=== PATIENT | female | born 2005 | race Caucasian/White ===

== ENCOUNTER 2024-12-29 06:38 | Emergency (ER) | payer OTHER, SELFPAY ==
[2024-12-29 06:45] VITALS: BP 142/88; PULSE 86; TEMP 36.9; O2SAT 98; BMI 46.1
[2024-12-29 07:18] LABS: Basophils Absolute Auto 0.1 10^3/uL (0.0-0.1); Basophils Percent Auto 0.8 % (0.2-2.0); Eosinophils Absolute Auto 0.1 10^3/uL (0.0-0.7); Hematocrit 42.1 % (36.0-48.0); Immature Granulocytes Abs Auto 0.02 10^3/uL (0.00-0.03); Immature Granulocytes Pct Auto 0.2 % (0.0-0.5); Lymphocytes Absolute Auto 1.9 10^3/uL (1.2-3.8); Mean Corpuscular HGB Conc 33.3 g/dL (29.9-35.2); Mean Corpuscular Hemoglobin 28.7 pg (26.7-34.0); Mean Corpuscular Volume 86.4 fL (81.0-99.0); Mean Platelet Volume 10.5 fL (9.5-13.5); Monocytes Absolute Auto 0.6 10^3/uL (0.3-0.8); Monocytes Percent Auto 6.9 % (1.7-12.0); Neutrophils Absolute Auto 5.8 10^3/uL (1.4-6.5); Neutrophils Percent Auto 69.1 % (43.0-75.0); Platelet Count 364 10^3/uL (150-450); Red Blood Count 4.87 10^6/uL (4.20-5.40); Red Cell Distribution Width 12.5 % (11.0-15.0); White Blood Count 8.4 10^3/uL (4.0-11.0)
[2024-12-29] MEDS: KETOROLAC TROMETHAMINE 30 MG/ML VIAL 15 MG IVP (07:26)
[2024-12-29 07:33] LABS: HCG Qualitative NEGATIVE (NEGATIVE); Internal Control Within Normal Limits
[2024-12-29 07:35] LABS: Alanine Aminotransferase 30 U/L (14-59); Albumin Level 3.7 g/dL (3.4-5.0); Alkaline Phosphatase 99 U/L (46-116); Anion Gap 15.7; Aspartate Amino Transferase 19 U/L (15-37); BUN Creatinine Ratio 17.6; Bilirubin Total 0.2 mg/dL (0.2-1.0); Calcium 9.3 mg/dL (8.5-10.1); Carbon Dioxide 24.6 mmol/L (21.0-32.0); Chloride 103 mmol/L (98-107); Estimated GFR (African America >60 (>=60 mL/min/1.73m^2); Estimated GFR (Non-African Ame >60 (>=60 mL/min/1.73m^2); Globulin 3.8 g/dL; Glucose 114 mg/dL (74-106); Potassium 4.3 mmol/L (3.5-5.1); Sodium 139 mmol/L (136-145); Total Protein 7.5 g/dL (6.4-8.2)
[2024-12-29] MEDS: 0.9 % SODIUM CHLORIDE 1,000 ML 1000 ML IV (07:51)
[2024-12-29 08:55] VITALS: BP 148/75; PULSE 69; TEMP 36.7; O2SAT 100
[2024-12-29 09:12] LABS: Bilirubin Urine NEGATIVE (NEGATIVE); Blood Urine LARGE (NEGATIVE); Clarity Urine SL CLOUDY (CLEAR); Color Urine BROWN (YELLOW); Glucose Urine UA NEGATIVE (NEGATIVE); Ketones Urine NEGATIVE (NEGATIVE); Leukocyte Esterase Urine NEGATIVE (NEGATIVE); Nitrite Urine NEGATIVE (NEGATIVE); Protein Urine 100 mg/dL (NEG/TRACE); Urobilinogen Urine 0.2 EU/dL (0.2-1.0)
[2024-12-29 09:17] LABS: Urine Microscopic Indicated YES
[2024-12-29 09:23] LABS: Bacteria Urine LARGE #/HPF (NONE SEEN); Mucus Urine TRACE (NONE SEEN); RBC Urine >100 #/HPF (0-2); Squamous Epithelial Cell Urine FEW #/LPF (NONE/RARE); WBC Urine 0-2 #/HPF (NONE SEEN)
[2024-12-29 09:24] LABS: Cast Seen? NONE SEEN #/LPF (NONE SEEN); Crystals Seen? None Seen #/HPF (None Seen); Urine Culture Indicated YES-FRMC
--- NOTE | 2024-12-29 09:38 | ED_ITS ---
HPI - Abdominal Pain General Chief Complaint: Abdominal Pain Stated Complaint: abd pain Time Seen by Provider: 12/29/24 06:56 Mode of arrival: walk-in Limitations: no limitations History of Present Illness HPI narrative: The patient is a 19 years old female coming to the ER with right-sided flank pain that started last night, patient mentioned that she have a history of kidney stone few years ago that she passed by herself, the patient denies any nausea vomiting fever chills or any other concerns, she mentioned that the pain started last night with no exacerbating factors of trauma or carrying anything heavy No radiation of the pain to the abdomen but she mentioned that it radiate towards her back Related Data Previous Rx's ?Medication ?Instructions ?Recorded cephalexin 500 mg capsule 500 mg PO Q8H 7 days #21 caps 12/29/24 tamsulosin 0.4 mg capsule (Flomax) 0.4 mg PO DAILY #10 caps 12/29/24 tramadol 50 mg tablet 50 mg PO BID PRN pain #6 tabs 12/29/24 Allergies Allergy/AdvReac Type Severity Reaction Status Date / Time No Known Drug Allergies Allergy Verified 12/29/24 06:51 Review of Systems ROS Status of ROS 10 or more systems reviewed and unremark able except as noted in history and below PFSH PFSH Social History Little interest or pleasure in doing things: not at all Feeling down, depressed, or hopeless: not at all Exam Narrative Exam Narrative: Nurses notes and vital signs reviewed and patient is not hypoxic. General: Well-appearing and in no apparent distress. Skin: Warm, dry, no pallor noted. No rash. Head: Normocephalic, atraumatic. Neck: Supple, non-tender. Cardiovascular: Regular Rate and Rhythm without murmur, gallop or rub. Respiratory: No accessory muscle use or respiratory distress. Lungs are clear to auscultation, no wheezing, rales or rhonchi Chest Wall: no tenderness Back: No midline thoracic or lumbar vertebral tenderness. Right CVA tenderness Musculoskeletal: normal ROM, no calf or popliteal tenderness, no lower extremity edema/swelling GI: Abdomen is soft, non-distended. Normal bowel sounds. No masses appreciated. No tenderness to palpation. No rebound, guarding, or rigidity noted. Constitutional Vital Signs, click to edit/add: Last Vital Signs Temp 98.1 F 12/29/24 08:55 Pulse 69 12/29/24 08:55 Resp 16 12/29/24 08:55 BP 148/75 H 12/29/24 08:55 Pulse Ox 100 12/29/24 08:55 O2 Del Method Room Air 12/29/24 08:55 Course Vital Signs Vital signs: Vital Signs Temperature 98.4 F 12/29/24 06:45 Pulse Rate 86 12/29/24 06:45 Respiratory Rate 16 12/29/24 06:45 Blood Pressure 142/88 H 12/29/24 06:45 Pulse Oximetry 98 12/29/24 06:45 Oxygen Delivery Method Room Air 12/29/24 06:45 Temperature 98.1 F 12/29/24 08:55 Pulse Rate 69 12/29/24 08:55 Respiratory Rate 16 12/29/24 08:55 Blood Pressure 148/75 H 12/29/24 08:55 Pulse Oximetry 100 12/29/24 08:55 Oxygen Delivery Method Room Air 12/29/24 08:55 MDM - Abdominal Pain MDM Narrative Medical decision making narrative: The patient CBC and chemistry showed no acute significant pathology Urinalysis showed some bacteria and blood test is negative The patient CAT scan showed 3 mm kidney stone on the right side that is at the UVJ junction Patient have mild hydronephrosis on the right side The patient pain responded to Toradol in the ER she was discharged with tramadol as a backup pain medication to help her symptoms being controlled The patient was provided with Flomax as well as strainer and instructed about hydrating well and follow-up with urology as outpatient or her primary care in case of improvement The patient is to follow up with primary care physician in next 2-3 days or to return to the emergency department should any of the signs or symptoms worsen or new symptoms develop. The patient agrees with the following Diagnosis and Treatment plan and the patient will be discharged home. Lab Data Labs: Lab Results 12/29/24 12/29/24 Range/Units 07:10 09:00 WBC 8.4 (4.0-11.0) 10^3/uL RBC 4.87 (4.20-5.40) 10^6/uL Hgb 14.0 (12.0-16.0) g/dL Hct 42.1 (36.0-48.0) % MCV 86.4 (81.0-99.0) fL MCH 28.7 (26.7-34.0) pg MCHC 33.3 (29.9-35.2) g/dL RDW 12.5 (11.0-15.0) % Plt Count 364 (150-450) 10^3/uL MPV 10.5 (9.5-13.5) fL Neut % (Auto) 69.1 (43.0-75.0) % Lymph % (Auto) 22.0 (20.5-60.0) % [place] % (Auto) 6.9 (1.7-12.0) % Eos % (Auto) 1.0 (0.9-7.0) % Baso % (Auto) 0.8 (0.2-2.0) % Neut # (Auto) 5.8 (1.4-6.5) 10^3/uL Lymph # (Auto) 1.9 (1.2-3.8) 10^3/uL [place] # (Auto) 0.6 (0.3-0.8) 10^3/uL Eos # (Auto) 0.1 (0.0-0.7) 10^3/uL Baso # (Auto) 0.1 (0.0-0.1) 10^3/uL Abs Immat Gran (auto) 0.02 (0.00-0.03) 10^3/uL Imm/Tot Granulo (auto) 0.2 (0.0-0.5) % Sodium 139 (136-145) mmol/L Potassium 4.3 (3.5-5.1) mmol/L Chloride 103 (98-107) mmol/L Carbon Dioxide 24.6 (21.0-32.0) mmol/L Anion Gap 15.7 BUN 19.0 H (7.0-18.0) mg/dL Creatinine 1.08 H (0.55-1.02) mg/dL Est GFR ( Amer) >60 (>=60 mL/min/1.73m^2) Est GFR (Non-Af Amer) >60 (>=60 mL/min/1.73m^2) BUN/Creatinine Ratio 17.6 Glucose 114 H (74-106) mg/dL Calcium 9.3 (8.5-10.1) mg/dL Total Bilirubin 0.2 (0.2-1.0) mg/dL AST 19 (15-37) U/L ALT 30 (14-59) U/L Alkaline Phosphatase 99 (46-116) U/L Total Protein 7.5 (6.4-8.2) g/dL Albumin 3.7 (3.4-5.0) g/dL Globulin 3.8 g/dL Albumin/Globulin Ratio 1.0 Serum HCG, Qual Negative (NEGATIVE) Urine Color Brown A (YELLOW) Urine Clarity Sl cloudy (CLEAR) Urine pH 6.0 (5.0-9.0) Ur Specific [place] 1.020 (1.005-1.025) Urine Protein 100 A (NEG/TRACE) mg/dL Urine Glucose (UA) Negative (NEGATIVE) mg/dL Urine Ketones Negative (NEGATIVE) mg/dL Urine Occult Blood Large A (NEGATIVE) Urine Nitrite Negative (NEGATIVE) Urine Bilirubin Negative (NEGATIVE) Urine Urobilinogen 0.2 (0.2-1.0) EU/dL Ur Leukocyte Esterase Negative (NEGATIVE) Urine RBC >100 A (0-2) #/HPF Urine WBC 0-2 A (NONE SEEN) #/HPF Ur Squamous Epith Cells Few A (NONE/RARE) #/LPF Urine Crystals None seen (None Seen) #/HPF Urine Bacteria Large A (NONE SEEN) #/HPF Urine Casts None seen (NONE SEEN) #/LPF Urine Mucus Trace A (NONE SEEN) Ur Culture Indicated? Yes-[facility] [place] Discharge Plan Discharge Chief Complaint: Abdominal Pain Clinical Impression: Calculus of kidney, Hydronephrosis Patient Disposition: Home, Self-Care Time of Disposition Decision: 08:49 Condition: Good Prescriptions / Home Meds: New tamsulosin [Flomax] 0.4 mg capsule 0.4 mg PO DAILY Qty: 10 0RF cephalexin 500 mg capsule 500 mg PO Q8H 7 Days Qty: 21 0RF tramadol 50 mg tablet 50 mg PO BID PRN (Reason: pain) Qty: 6 0RF Print Language: Citizen Of [place] Instructions: Kidney Stones (ED), How to Strain Your Urine (ED), Hydronephrosis (ED) Referrals: Aramis Cotton MD [Primary Care Provider] - 1 week Deborah Schmitz MD [Physician] - 1 week
== END 2024-12-29 09:55 | disposition home or self-care (01) ==
PROVIDERS: Emergency Provider Emergency Medicine; PCP Family Medicine
DX: N13.2 Hydronephrosis with renal and ureteral calculous obstruction (principal); Z87.442 Personal history of urinary calculi
CPT/HCPCS: 36415; 74176; 80053; 81001; 84703; 85025; 87086; 96374; 99284; J1885

== ENCOUNTER 2025-06-28 14:07 | Emergency (ER) | payer OTHER, SELFPAY ==
--- OUTSIDE RECORDS SUMMARY | 2025-06-28 14:27 | XMS_ITS | CCD ---
Author Organization [facility] Care Team Providers Care Screw Remover Name Role Phone JAMES DAVIS Unavailable Unavailable JAMES DAVIS Unavailable Unavailable NO FAMILY, PHYSICIAN Primary Care Provider Unava ilDO Jose Eduardo Elkins Emergency Provider MD Bonifacio Eller Admit Provider MD Bonifacio Eller Attending Provider [phone] NON STAFF Attending Provider Unavailable NON STAFF Attending Unavailable NON STAFF Admitting Unavailable Medications Current Medications Medication Drug Class(es) Dates Sig (Normalized) Sig (Original) escitalopram 5 mg oral tablet (1 source) Serotonin Reuptake Inhibitor Start: 11-15-2023 take 1 tablet by mouth once daily in the morning Escitalopram Oxalate 5 mg Tablet Active 5 MG PO Every morning 15 15 November 15, 2023 1:00am [place] (No Known Home Meds) (1 source) Start: 11-12-2023 [place] (No Known Home Meds) Active November 12, 2023 1:00am Problems Problem Classification Problem Date Documented Da te Episodic/Chronic Mood disorders (1 source) Moderate recurrent major depression; Translations: [Major depressive disorder, recurrent, moderate] 11-13-2023 Chronic Suicide and intentional self-inflicted injury (1 source) Suicidal thoughts; Translations: [Suicidal ideations] 11-23-2023 Episodic Results Test Name Value Interpretation Reference Range Facility Urine Cultureon 12-29-2024 Bacteria identified Cx Nom (U) 50,000 colonies/ml mixed bacterial skin contaminants 2 Days PERFORMED BY: [facility] [place] [id number] PATHOLOGIST SENIOR SYSTEMS PROGRAMMER ANGELITO LATHAM M.D. Normal [facility] Comment on above: Performed By: #### C UU #### [facility] [address] [id number] [facility] Alanine aminotransferase [En zymatic activity/volume] in Serum or PlasmaOrdered By: Jose Eduardo Spear on 11-12-2023 ALT [Catalytic activity/Vol] 21 U/L 7-52 [facility] Albumin [Mass/volume] in Ser um or Plasma by Bromocresol green (BCG) dye binding methoOrdered By: Jose Eduardo Spear on 11-12-2023 Albumin BCG dye [Mass/Vol] 4.7 g/dL 3.5-5.7 [facility] Alkaline phosphatase [Enzyma tic activity/volume] in Serum or PlasmaOrdered By: Jose Eduardo Spear on 11-12-2023 ALP [Catalytic activity/Vol] 102 U/L 34-104 [facility] Amphetamine Screen Ql (U)Ord ered By: Jose Eduardo Spear on 11-12-2023 Amphetamines Ql (U) Negative Negative [facility] Aspartate aminotransferase [ Enzymatic activity/volume] in Serum or PlasmaOrdered By: Jose Eduardo Spear on 11-12-2023 AST [Catalytic activity/Vol] 18 U/L 13-39 [facility] Barbiturates [Presence] in U rine by Screen methodOrdered By: Jose Eduardo Spear on 11-12-2023 Barbiturates Screen Ql (U) Negative Negative [facility] Basophils Auto (Bld) [#/Vol] Ordered By: Jose Eduardo Spear on 11-12-2023 Basophils (Bld) [#/Vol] 0.1 10*3/uL 0.0-0.2 [facility] Basophils/100 WBC Auto (Bld) Ordered By: Jose Eduardo Spear on 11-12-2023 Basophils/100 WBC (Bld) 1.5 % . [facility] Benzodiazepines Screen Ql (U )Ordered By: Jose Eduardo Spear on 11-12-2023 Benzodiazepines Ql (U) Negative Negative [facility] Benzoylecgonine [Presence] i n Urine by Screen methodOrdered By: Jose Eduardo Spear on 11-12-2023 Benzoylecgonine Screen Ql (U) Negative Negative [facility] Bilirubin Test strip Ql (U)O rdered By: Jose Eduardo Spear on 11-12-2023 Bilirubin Ql (U) Negative Negative [facility] Bilirubin.total [Mass/volume ] in Serum or PlasmaOrdered By: Jose Eduardo Spear on 11-12-2023 Bilirubin [Mass/Vol] 0.3 mg/dL 0.3-1.0 [facility] Calcium [Mass/volume] in Ser um or PlasmaOrdered By: Jose Eduardo Spear on 11-12-2023 Calcium [Mass/Vol] 9.7 mg/dL 8.6-10.[address] [facility] Cannabinoids [Presence] in U rine by Screen methodOrdered By: JoseE duardo Spear on 11-12-2023 Cannabinoids Screen Ql (U) Negative Negative [facility] Comment on above: These are unconfirme d results and should not be used for legal purposes. Drug Cut-Off Concentration: AMPH 1000 ng/mL LILA 200 ng/mL ANDREIA 200 ng/mL COCM 300 ng/mL OP 300 ng/mL PCP 25 ng/mL THC 20 ng/mL Carbon dioxide, total [Moles /volume] in Serum or PlasmaOrdered By: Jose Eduardo Spear on 11-12-2023 CO2 [Moles/Vol] 25.3 mmol/L 21.0-31.0 [facility] Chloride [Moles/volume] in S julio or PlasmaOrdered By: Jose Eduardo Spear on 11-12-2023 Chloride [Moles/Vol] 106 mmol/L 98-107 [facility] Color Auto (U)Ordered By: Hermilo Spear on 11-12-2023 Color (U) Yellow Yellow [facility] Creatinine [Mass/volume] in Serum or PlasmaOrdered By: Jose Eduardo Spear on 11-12-2023 Creatinine [Mass/Vol] 0.83 mg/dL 0.60-1.20 [facility] Eosinophils Auto (Bld) [#/Vo l]Ordered By: Jose Eduardo Spear on 11-12-2023 Eosinophils (Bld) [#/Vol] 0.2 10*3/uL 0.0-0.45 [facility] Eosinophils/100 WBC Auto (Bl d)Ordered By: Jose Eduardo Spear on 11-12-2023 Eosinophils/100 WBC (Bld) 2.6 % . [facility] Erythrocyte distribution wid th Auto (RBC) [Ratio]Ordered By: Jose Eduardo Spear on 11-12-2023 Erythrocyte distribution width (RBC) [Ratio] 13.8 % 11.9-15.3 [facility] Ethanol [Mass/volume] in Ser um or PlasmaOrdered By: Jose Eduardo Spear on 11-12-2023 Ethanol [Mass/Vol] mg/dL [facility] Ethanol [Mass/Vol] TNP [facility] Comment on above: Test not performed Globulin Calc (S) [Mass/Vol] Ordered By: Jose Eduardo Spear on 11-12-2023 Globulin (S) [Mass/Vol] 3.1 g/dL [facility] Glucose [Mass/volume] in Ser um or PlasmaOrdered By: Jose Eduardo Spear on 11-12-2023 Glucose [Mass/Vol] 104 mg/dL 70-[address] [facility] Comment on above: ADA recommended refe rence rangeRandom Glucose Reference Range is dependent on time and content of last meal. Glucose of more than 200 mg/dL in a nonstressed, ambulatory subject supports the diagnosis of Diabetes Mellitus. HCG ( test) IA.rapi d Ql (U)Ordered By: Jose Eduardo Spear on 11-12-2023 HCG ( test) Ql (U) Negative [facility] Hematocrit Auto (Bld) [Volum e fraction]Ordered By: Jose Eduardo Spear on 11-12-2023 Hematocrit (Bld) [Volume fraction] 42.2 % 34.0-46.4 [facility] Hemoglobin [Mass/volume] in BloodOrdered By: Jose Eduardo Spear on 11-12-2023 Hemoglobin (Bld) [Mass/Vol] 14.1 g/dL 11.8-15.4 [facility] Ketones Auto test strip (U) [Mass/Vol]Ordered By: Jose Eduardo Spear on 11-12-2023 Ketones (U) [Mass/Vol] Trace Negative [facility] Leukocytes [#/volume] correc nisha for nucleated erythrocytes in Blood by Automated counOrdered By: Jose Eduardo Spear on 11-12-2023 WBC corrected for nucl RBC Auto (Bld) [#/Vol] 7.8 10*3/uL 3.8-11.6 [facility] Lymphocytes Auto (Bld) [#/Vo l]Ordered By: Jose Eduardo Spear on 11-12-2023 Lymphocytes (Bld) [#/Vol] 2.5 10*3/uL 1.00-4.8 [facility] Lymphocytes/100 WBC Auto (Bl d)Ordered By: Jose Eduardo Spear on 11-12-2023 Lymphocytes/100 WBC (Bld) 32.0 % . [facility] MCH Auto (RBC) [Entitic mass ]Ordered By: Jose Eduardo Spear on 11-12-2023 MCH (RBC) [Entitic mass] 27.7 pg 24.7-34.3 [facility] MCHC Auto (RBC) [Mass/Vol]Or dered By: Jose Eduardo Spear on 11-12-2023 MCHC (RBC) [Mass/Vol] 33.3 g/dL 32.0-35.0 [facility] MCV Auto (RBC) [Entitic vol] Ordered By: Jose Eduardo Spear on 11-12-2023 MCV (RBC) [Entitic vol] 83.0 fL 80-100 [facility] Monocyte distribution width [Entitic volume] in Blood by AutomatedOrdered By: Jose Eduardo Spear on 11-12-2023 Monocyte distribution width Auto (Bld) [Entitic vol] 18.56 % 0.00-20.00 [facility] Monocytes Auto (Bld) [#/Vol] Ordered By: Jose Eduardo Spear on 11-12-2023 Monocytes (Bld) [#/Vol] 0.4 10*3/uL 0.0-0.8 [facility] Monocytes/100 WBC Auto (Bld) Ordered By: Jose Eduardo Spear on 11-12-2023 Monocytes/100 WBC (Bld) 5.7 % . [facility] Neutrophils Auto (Bld) [#/Vo l]Ordered By: Jose Eduardo Spear on 11-12-2023 Neutrophils (Bld) [#/Vol] 4.6 10*3/uL 1.8-7.7 [facility] Neutrophils/100 WBC Auto (Bl d)Ordered By: Jose Eduardo Spear on 11-12-2023 Neutrophils/100 WBC (Bld) 58.2 % . [facility] Nitrite Test strip Ql (U)Ord ered By: Jose Eduardo Spear on 11-12-2023 Nitrite Ql (U) Negative Negative [facility] No Panel InformationOrdered By: Jose Eduardo Spear on 11-12-2023 Estimated GFR (CKD-EPI) > 60.0 mL/Min [facility] Creatinine Clearance (Chem 132.97 [facility] Nucleated erythrocytes [Pres ence] in Blood by Automated countOrdered By: Jose Eduardo Spear on 11-12-2023 Nucleated RBC Auto Ql (Bld) 0.0 /100{WBC} 0-0.5 [facility] Opiates [Presence] in Urine by Screen methodOrdered By: Jose Eduardo Spear on 11-12-2023 Opiates Screen Ql (U) Negative Negative [facility] Phencyclidine Screen Ql (U)O rdered By: Jose Eduardo Spear on 11-12-2023 Phencyclidine Ql (U) Negative Negative [facility] Platelet mean volume Auto (B ld) [Entitic vol]Ordered By: Jose Eduardo Spear on 11-12-2023 Platelet mean volume (Bld) [Entitic vol] 8.7 fL 6.3-10.7 [facility] Platelets Auto (Bld) [#/Vol] Ordered By: Jose Eduardo Spear on 11-12-2023 Platelets (Bld) [#/Vol] 356 10*3/uL 150-450 [facility] Potassium [Moles/volume] in Serum or PlasmaOrdered By: Jose Eduardo Spear on 11-12-2023 Potassium [Moles/Vol] 3.8 mmol/L 3.5-5.1 [facility] Protein Auto test strip (U) [Mass/Vol]Ordered By: Jose Eduardo Spear on 11-12-2023 Protein (U) [Mass/Vol] Negative Negative [facility] Protein [Mass/volume] in Ser um or PlasmaOrdered By: Jose Eduardo Spera on 11-12-2023 Protein [Mass/Vol] 7.8 g/dL 6.4-8.[address] [facility] RBC Auto (Bld) [#/Vol]Ordere d By: Jose Eduardo Spear on 11-12-2023 RBC (Bld) [#/Vol] 5.08 10*6/uL 3.60-5.00 [facility] Serum or plasma albumin/glob ulin mass ratioOrdered By: Jose Eduardo Spear on 11-12-2023 Albumin/Globulin [Mass ratio] 1.5 {ratio} [facility] Serum or plasma anion gap de terminationOrdered By: Jose Eduardo Spear on 11-12-2023 Anion gap [Moles/Vol] 11.5 mmol/L 6.0-15.0 [facility] Sodium [Moles/volume] in Ser um or PlasmaOrdered By: Jose Eduardo Spear on 11-12-2023 Sodium [Moles/Vol] 139 mmol/L 136-[address] [facility] Specific gravity Auto test s trip (U) [Rel density]Ordered By: Jose Eduardo Spear on 11-12-2023 Specific gravity (U) [Rel density] 1.025 1.001-1.030 [facility] Urea nitrogen [Mass/volume] in Serum or PlasmaOrdered By: Jose Eduardo Spear on 11-12-2023 Urea nitrogen [Mass/Vol] 13 mg/dL 7-25 [facility] Urine clarity by refractomet ry automatedOrdered By: Jose Eduardo Spear on 11-12-2023 Clarity Refractometry automated (U) Clear Clear [facility] Urine glucose measurement by automated test strip (mass/volume)Ordered By: Jose Eduardo Spear on 11-12-2023 Glucose Auto test strip (U) [Mass/Vol] Normal mg/dL Normal [facility] Urine hemoglobin detection b y automated test stripOrdered By: Jose Eduardo Spear on 11-12-2023 Hemoglobin Auto test strip Ql (U) Negative Negative [facility] Urine leukocyte esterase det ection by automated test stripOrdered By: Jose Eduardo Spear on 11-12-2023 Leukocyte esterase Auto test strip Ql (U) Negative Negative [facility] Urobilinogen Auto test strip (U) [Mass/Vol]Ordered By: Jose Eduardo Spear on 11-12-2023 Urobilinogen (U) [Mass/Vol] Normal mg/dL Normal [facility] WBC Auto (Bld) [#/Vol]Ordere d By: Jose Eduardo Beatris on 11-12-2023 WBC (Bld) [#/Vol] 7.8 10*3/uL 3.8-11.[address] [facility] pH Auto test strip (U)Ordere d By: Jose Eduardo Beatris on 11-12-2023 pH (U) 6.0 [pH] 5.0-9.0 [facility] Vital Signs Date Time Vital Sign Value Performing Clinician Faci lity 11-12-2023 21:58-0500 Body height 157.48 cm PHYSICIAN NO [facility] 11-12-2023 21:58-0500 Body temperature 98 [degF] PHYSICIAN NO [facility] 11-12-2023 21:58-0500 Body weight 118 kg PHYSICIAN NO [facility] 11-12-2023 21:58-0500 Diastolic blood pressure 99 mm[Hg] PHYSICIAN NO [facility] 11-12-2023 21:58-0500 Heart rate 87 /min PHYSICIAN NO [facility] 11-12-2023 21:58-0500 Respiratory rate 20 /min PHYSICIAN NO [facility] 11-12-2023 21:58-0500 SaO2% (BldA) [Mass fraction] 100 % PHYSICIAN NO [facility] 11-12-2023 21:58-0500 Systolic blood pressure 175 mm[Hg] PHYSICIAN NO [facility] Encounters Encounter Date Encounter Type Care Provider Facility Start: 12-29-2024 End: 12-29-2024 ambulatory NON STAFF [facility] Work Phone: Start: 12-29-2024 End: 12-29-2024 Departed Referred [facility] Start: 11-15-2023 ambulatory [place] Start: 11-13-2023 Evaluation and management of inpatient PHYSICIAN NO [facility] Work Phone: Start: 12-19-2017 Ambulatory JAMES CRUZY Facility:H 1 Plan of Treatment Date Care Activity Detail Author Start: 12-29-2024 Bacteria identified in Urine by Culture Urine Culture [facility] Start: 12-29-2024 Urine culture [facility] Payers Date Payer Category Payer Self-pay 2023 Medicaid [id number] [id number] 1960 Self-pay [id number] Unknown [id number] Social History Date Type Detail Facility Start: 11-12-2023 End: 11-13-2023 Tobacco smoking status NHIS Never smoked tobacco (finding) [facility] Start: 2005 Sex Assigned At Female [facility] Start: 12-30-2024 Sex Female (finding) [facility] Evaluation note Note Date & Type Note Facility Evaluation note No assessment information availa ble [facility] Work Phone: Summary Purpose Family History No Family History Records Found Relationship Condition Age at Onset Recorded Date/T miah mother Bipolar affective disorder Unknown Accidental overdose of heroin Unknown Advance Directives No Advanced Directives Records Found Advance Directive Response Recorded Date/ Time Advance Directives No November 12, 2023 10:38pm Advance Directive Response Recorded Date/ Time Advance Directives No November 12, 2023 11:38pm Chief Complaint and Reason for Visit Chief Complaint MHP Chief Complaint Admit Date Unknown December 29, 2024 9:2 4am Additional Source Comments INFORMATION SOURCE (unrecogn ized section and content) DATE CREATED AUTHOR 04/06/2018 [facility] DATE CREATED AUTHOR AUTHOR'S ORGANIZ ATION 05/08/2024 [place] DATE CREATED AUTHOR AUTHOR'S ORGANIZ ATION 01/02/2025 [facility] Care Teams (unrecognized sec tion and content) Team Status: Active Member Role Status Dates PHYSICIAN NO FAMILY Primary Care Provider Active Team Status: Active Member Role Status Dates PHYSICIAN NO FAMILY Primary Care Provider Active Start: November 13, 2023 Jose Eduardo Spear DO Emergency Provider Active St art: November 13, 2023 Bonifacio Eller MD Admit Provide r, Attending Provider Active Start: November 13, 2023 Team Status: Inactive Member Role Status Dates NON STAFF Attending Provider Active Start: [facility] 2024 End: December 29, 2024 Goals (unrecognized section and content) Goals may be documented in a n alternate sectionGoals may be documented in an alternate section FOR RECORDS PERTAINING TO PATIENTS WHO ARE OR HAVE BEEN ENROLLED IN A CHEMICAL DEPENDENCY/SUBSTANCEABUSE PROGRAM, SOME INFORMATION MAY BE OMITTED. This clinical summary was aggregated from multiple sources. Caution should be exercised in using it in the provision of clinical care. This summary normalizes information from multiple sources, and as a consequence, information in this document may materially change the coding, format and clinical context of patient data. In addition, data may be omitted in some cases. CLINICAL DECISIONS SHOULD BE BASED ON THE PRIMARY CLINICAL RECORDS. [facility] [employer] provides no warranty or guarantee of the accuracy or completeness of information in this document.
[2025-06-28 14:36] VITALS: BP 164/90; PULSE 79; TEMP 37.1; O2SAT 99; BMI 44.6
--- NOTE | 2025-06-28 16:14 | ED_ITS ---
HPI - Skin/Abscess/Foreign Bdy General Chief complaint: Extremity Problem, Nontraumatic Stated complaint: BILATERAL FOOT PAIN Time Seen by Provider: 06/28/25 15:25 Source: patient Mode of arrival: walk-in History of Present Illness HPI narrative: 20-year-old female presents to the ED with blisters on the bottoms of her feet following prolonged activity. She reports working an 8-hour shift yesterday, followed by an additional 7?8 hours of walking at [place]. She complains of pain around the toes, particularly between the first and second toes on the left foot. She notes one fluid-filled blister on the left foot, while the other areas are irritated but not blistered. She has not used any treatments for the symptoms. She attempted to seek care at urgent care, but they refused evaluation. She denies other foot pain or systemic complaints. This is an isolated issue. Related Data Allergies Allergy/AdvReac Type Severity Reaction Status Date / Time No Known Drug Allergies Allergy Verified 06/28/25 14:36 PFSH PFSH Social History Little interest or pleasure in doing things: not at all Feeling down, depressed, or hopeless: not at all Exam Narrative Exam Narrative: General: * Alert, oriented ?3, in mild discomfort due to foot blisters. No acute distress otherwise. Mental Status: * Alert and oriented to person, place, time, and situation. Cardiovascular: * Heart rate regular. S1/S2 normal. No murmurs, rubs, or gallops. Peripheral pulses intact and symmetric in upper and lower extremities. Respiratory: * Lungs clear to auscultation bilaterally. No wheezes, rales, or rhonchi. Respiratory effort normal. Extremities / Musculoskeletal: * Left foot: one fluid-filled blister on plantar surface near toes, mild erythema and irritation between 1st and 2nd toes. Overlying skin intact after needle drainage. * Right foot: mild inter-digital irritation between toes, no fluid-filled blisters. * No swelling, deformity, or signs of infection. * Full range of motion of ankle and toes, neurovascularly intact (sensation and circulation normal). Skin: * Blister as noted above. Otherwise skin warm, dry, intact. No rashes or other lesions. Neuro: * Motor and sensory exam normal in upper and lower extremities. . Constitutional Vital Signs, click to edit/add: Last Vital Signs Temp 98.7 F 06/28/25 14:36 Pulse 79 06/28/25 14:36 Resp 16 06/28/25 14:36 BP 164/90 H 06/28/25 14:36 Pulse Ox 99 06/28/25 14:36 O2 Del Method Room Air 06/28/25 14:36 Course Vital Signs Vital signs: Vital Signs Temperature 98.7 F 06/28/25 14:36 Pulse Rate 79 06/28/25 14:36 Respiratory Rate 16 06/28/25 14:36 Blood Pressure 164/90 H 06/28/25 14:36 Pulse Oximetry 99 06/28/25 14:36 Oxygen Delivery Method Room Air 06/28/25 14:36 Temperature 98.7 F 06/28/25 14:36 Pulse Rate 79 06/28/25 14:36 Respiratory Rate 16 06/28/25 14:36 Blood Pressure 164/90 H 06/28/25 14:36 Pulse Oximetry 99 06/28/25 14:36 Oxygen Delivery Method Room Air 06/28/25 14:36 MDM - Skin/Abscess/Foreign Bdy MDM Narrative Medical decision making narrative: 20-year-old female presents with plantar blisters following prolonged activity (work shift plus [place] walking). Exam notable for one fluid-filled blister on the left foot and mild inter-digital irritation between the toes, with no signs of infection. The blister was cleaned with chlorhexidine and needle-drained, preserving the overlying skin. The remainder of the foot exam was unremarkable, with intact neurovascular status. Differential considerations include friction-induced blisters (most likely given recent activity), intertrigo or fungal irritation between toes, and less likely infected blisters, which were not present on exam. Patient was counseled on blister care at home, including keeping the feet clean and dry, use of blister pads or protective dressings, and monitoring for signs of infection. She was advised to follow-up with primary care or podiatry if blisters worsen or fail to heal. Patient verbalized understanding and agreed with the plan. Medical Records Attestation: I reviewed the patient's medical records. Discharge Plan Discharge Chief Complaint: Extremity Problem, Nontraumatic Clinical Impression: Blister of left foot without infection, Blister of foot without infection Patient Disposition: Home, Self-Care Condition: Good Print Language: Brazilian Instructions: Blister (ED) Additional Instructions: Discharge Instructions: Foot Blisters What Happened: * You have blisters on your feet. These are small pockets of fluid that form under the skin due to friction, pressure, or irritation. * They are usually not serious and heal on their own. Care at Home: * Leave the blister intact if possible. The skin covering the blister protects it from infection. * Keep it clean and dry. Wash gently with soap and water daily. * Cover with a clean bandage or gauze if the blister may rub against shoes or socks. * Do not pop or drain the blister unless it is very large or painful. If you must, use sterile technique and cover afterward. * Wear comfortable, well-fitting shoes and soft socks to reduce friction. * Avoid walking barefoot in public areas to reduce infection risk. Pain Relief: * Ahwx-gfk-ekdovuk pain medicine (e.g., acetaminophen or ibuprofen) may be used if needed. Watch For Signs of Infection: * Redness, warmth, or swelling around the blister * Pus or foul-smelling drainage * Increasing pain or fever When to Call Your Doctor: * Signs of infection listed above * Blisters that are very large, extremely painful, or keep coming back * Any underlying medical conditions (like diabetes) that affect foot healing Follow-Up: * Typically, no follow-up is needed if the blister is healing and not infected. * Return to care if symptoms worsen or do not improve within a week. Referrals: Aramis Cotton MD [Primary Care Provider, Family Practice] - 1 week Discharge Date/Time: 06/28/25 16:31 Procedures ED Procedure Instructions Procedures Procedures: Procedure / Treatment in ED: * The left foot blister was cleaned with chlorhexidine. * The blister was needle-drained with the overlying skin kept intact. * No purulence, erythema, or other signs of infection were noted.
== END 2025-06-28 16:31 | disposition home or self-care (01) ==
PROVIDERS: Emergency Provider Emergency Medicine; PCP Family Medicine
DX: S90.822A Blister (nonthermal), left foot, initial encounter (principal); Y93.01 Activity, walking, marching and hiking
CPT/HCPCS: 99281